=== PATIENT | female | born 1965 | race Caucasian/White ===

== ENCOUNTER 2020-11-04 14:57 | Emergency (ER) | payer OTHER, SELFPAY ==
[2020-11-04 15:09] VITALS: BP 117/79; PULSE 85; RESP 18; TEMP 36.3; O2SAT 99
[2020-11-04] MEDS: KETOROLAC 30 MG/ML VIAL (*BKC) IM (15:44)
--- NOTE | 2020-11-04 16:22 | ED.GENADULT ---
HPI - General Adult General Chief complaint: Neck Pain/Injury Stated complaint: Neck Pain Time Seen by Provider: 11/04/20 15:06 Source: patient Mode of arrival: ambulatory Limitations: no limitations History of Present Illness HPI narrative: Patient presents with chief complaint of discomfort to the right side of her neck that has been occurring for the past 3 months. Patient states she has seen her primary care and has been prescribed muscle relaxants without resolution of her symptoms. Patient reports she has had neck ultrasound and evaluation of her thyroid, blood work. 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 Patient denies vertebral point tenderness or trauma to her neck. Patient states she is most irritated sometimes at night she feels that she wakes up in gasps and takes a deep breath and feels throat soreness. Patient states she also gasps at times when she is watching TV and has to take a deep breath. She denies chest pain, trouble swallowing, trouble breathing, fever, chills, nausea, vomiting, diarrhea or any other symptoms. Related Data Home Medications Medication Instructions Recorded Confirmed pantoprazole PO BID 11/04/20 Allergies Allergy/AdvReac Type Severity Reaction Status Date / Time No Known Allergies Allergy Verified 11/04/20 15:08 Review of Systems Review of Systems: Narrative: CONSTITUTIONAL: Denies fever, chills, or sweats. EYES: Denies visual changes, redness, or discharge. ENT: Reports sore throat denies rhinorrhea, congestion, or otalgia. CARDIOVASCULAR: Denies chest pain, palpitations, or edema. RESPIRATORY: Denies cough or dyspnea. GASTROINTESTINAL: Denies abdominal pain, nausea, vomiting, or diarrhea. GENITOURINARY: Denies dysuria or hematuria. SKIN: Denies rash or itching. MUSCULOSKELETAL: Reports right side neck pain Denies back pain, joint pain, or myalgia. NEUROLOGIC: Denies headache, numbness, dizziness, or weakness. PSYCHIATRIC: Denies anxiety or depression. PMFSH Social History Social History Gender identity (if verbalized by the patient): Female Exam Narrative: Exam Narrative: GENERAL: Well-appearing, well-nourished, and in no acute distress.Voice normal and not hoarse or hot potato. HEAD: Normocephalic, atraumatic. EYES: PERRLA and EOMI. ENT:Mucous membranes moist. Oropharynx without tonsillar hypertrophy exudate or other lesions. Airway patent without signs of injury or obstruction. No signs of peritonsillar abscess. bilateral TMs pearly jama nonbulging NECK: Supple. There's diffuse tenderness bilateral tonsilar lymph nodes and along right cervical area without palpable masses or enlargement. CHEST: Clear to auscultation. No respiratory distress. No wheezes rales or rhonchi HEART: Regular rate and rhythm. EXTREMITIES: Normal range of motion. No edema. SKIN: Warm, dry, no rash. NEURO: No focal deficits. Alert and oriented x3. PSYCH: Normal mood and affect. Course Vital Signs Vital signs: Vital Signs Temperature 97.4 F L 11/04/20 15:09 Pulse Rate 85 11/04/20 15:09 Respiratory Rate 18 11/04/20 15:09 Blood Pressure 117/79 11/04/20 15:09 Pulse Oximetry 99 11/04/20 15:09 Temperature 98 F 11/04/20 16:50 Pulse Rate 69 11/04/20 16:50 Respiratory Rate 18 11/04/20 16:50 Blood Pressure 111/77 11/04/20 16:50 Pulse Oximetry 100 11/04/20 16:50 Medical Decision Making MDM Narrative Medical decision making narrative: Patient is not showing any signs of acute injury. Patient has already had neck ultrasound to evaluate the area in her thyroid ordered by her primary care. She says she is already had blood work performed. Patient has also had EGD performed by her GI specialist to rule out any complications in the check her Granado's esophagitis. Patient has mention waking up and feeling as if she needed to catch her breath. I wonder if the patient has sleep apnea and is mouth breathing.
[2020-11-04 16:50] VITALS: BP 111/77; PULSE 69; RESP 18; TEMP 36.6; O2SAT 100
== END 2020-11-04 16:50 | disposition home or self-care (01) ==
PROVIDERS: Emergency Provider Emergency Medicine; PCP Internal Medicine
DX: J02.9 Acute pharyngitis, unspecified (principal)
CPT/HCPCS: 87081; 87880; 96372; 99283; J1885

== ENCOUNTER 2023-11-10 14:02 | Outpatient (CLI) | payer OTHER, SELFPAY ==
--- NOTE | ~2023-11-10 | CT_ITS ---
EXAMINATION: CT cervical spine wo con DATE: 11/10/2023 14:21 INDICATION: Disease of spinal cord, unspecified. TECHNIQUE: Computed tomography (CT) of the cervical spine was performed without intravenous contrast. Automated exposure control and iterative reconstruction technique were employed. The dose-length pro duct was 550.17 mGy-cm. COMPARISON: None FINDINGS: There is 5 degrees levocurvature of cervical spine. There is mild kyphosis of cervical spin e. Vertebral body heights are normal. There is mildly decreased disc height at C3-C4 and C4-C5 and se verely decreased disc height at C5-C6 and C6-C7. The following disc levels are specifically discussed : C2-C3: There is mild bilateral uncovertebral joint osteoarthritis. There is no facet joint osteoarthr itis. There is no neural foraminal stenosis. There is no central canal stenosis. C3-C4: There is mild bilateral uncovertebral joint osteoarthritis. There is mild right and severe lef t facet joint osteoarthritis. There is mild left neural foraminal stenosis. There is no central canal stenosis. C4-C5: There is severe right and mild left uncovertebral joint osteoarthritis. There is mild bilatera l facet joint osteoarthritis. There is mild right neural foraminal stenosis. There is mild central ca nal stenosis. C5-C6: There is severe bilateral uncovertebral joint osteoarthritis. There is mild bilateral facet wander int osteoarthritis. There is mild bilateral neural foraminal stenosis. There is mild central canal st enosis. C6-C7: There is moderate right and severe left uncovertebral joint osteoarthritis. There is mild late ral facet joint osteoarthritis. There is mild left neural foraminal stenosis. There is mild central c anal stenosis. C7-T1: There is mild bilateral uncovertebral joint osteoarthritis. There is mild right and moderate l eft facet joint osteoarthritis. There is mild left neural foraminal stenosis. There is no central can al stenosis. IMPRESSION: 1. Severe cervical spondylosis. Reviewed, dictated and finalized at location [facility]
== END 2023-11-10 14:03 | disposition home or self-care (01) ==
LOC: ANHIMG 14:04
PROVIDERS: PCP Internal Medicine; Visit Provider Neurological Surgery
DX: G95.9 Disease of spinal cord, unspecified (principal); M43.02 Spondylolysis, cervical region
CPT/HCPCS: 72125